=== PATIENT | male | born 1985 | race Caucasian/White ===

== ENCOUNTER 2017-09-22 22:14 | Emergency (ER) | payer MEDICAID ==
--- NOTE | 2017-09-22 22:31 | EDPHY ---
H & P Stated Complaint: KELLEY, URI s/sx x4days Time Seen by Provider: 09/22/17 22:21 HPI/ROS: Chief Complaint: Cough, headache, congestion HPI: 32-year-old male presenting with 3-4 days of cough, headache, sinus congestion. Patient states that his cough initially was dry, but has gotten progressively more productive over the last couple days. No fevers or chills. Some mild nausea. No chest pain shortness of breath. No abdominal pain. Did have a couple episodes of diarrhea yesterday. None today. 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 Does smoke cigarettes. Does not drink alcohol. Did use cocaine and MDMA earlier today. ROS: 10 point Review of Systems is negative except as noted in the HPI. PMH: None Social History: Positive smoking, no alcohol, occasionally uses meth, cocaine and MDMA Family History: non-contributory Physical Exam: Gen: Awake, Alert, No Distress HEENT: Nose: no rhinorrhea Eyes: PERRLA, EOMI Mouth: Moist mucosa Neck: Supple, no JVD Chest: nontender, no wheeze, moderate crackles at the left lung base Heart: S1, S2 normal, no murmur Abd: Soft, non-tender, no guarding Back: no CVA tenderness, no midline tenderness Ext: no edema, non-tender Skin: no rash Neuro: CN II-XII intact, Sensation grossly intact, Strength 5/5 in bilateral upper and lower extremities - Personal History Current Tetanus/Diphtheria Vaccine: No - Medical/Surgical History Hx Asthma: No Hx Chronic Respiratory Disease: No Hx Diabetes: No Hx Cardiac Disease: No Hx Renal Disease: No Hx Cirrhosis: No Hx Alcoholism: No Hx HIV/AIDS: No Hx Splenectomy or Spleen Trauma: No Other PMH: denies - Social History Smoking Status: Current every day smoker Constitutional: Initial Vital Signs Temperature (C) 36.7 C 09/22/17 22:15 Heart Rate 138 H 09/22/17 22:15 Respiratory Rate 18 09/22/17 22:15 Blood Pressure 142/105 H 09/22/17 22:15 O2 Sat (%) 95 09/22/17 22:15 O2 Delivery Mode Room Air Allergies/Adverse Reactions: No Known Allergies Allergy (Unverified 09/22/17 22:19) Home Medications: Medication Instructions Recorded NK [No Known Home Meds] 09/22/17 Medical Decision Making ED Course/Re-evaluation: Patient here with URI symptoms with some proximal left lung base. Is not wheezing. He is tachycardic but he did use cocaine earlier today. He is not toxic in appearance. Will obtain a chest x-ray to rule out infiltrate. He is afebrile. Chest x-ray is negative for infiltrate. Symptoms consistent with viral upper respiratory infection. Will treat symptomatically. Follow up with [facility] in 3-4 days if symptoms are not improving. Departure - Departure Disposition: Home, Routine, Self-Care Clinical Impression: URI (upper respiratory infection) Condition: Good Instructions: Upper Respiratory Infection (ED) Additional Instructions: Alternate acetaminophen (1000 mg) with ibuprofen (400 mg) every 4 hours as needed for fevers, chills, aches or pain. Follow up with [facility] in 3-4 days if symptoms are not improving. Referrals: [facility],. [Clinic] - As per Instructions
[2017-09-22 23:20] VITALS: BP 160/105; PULSE 121; RESP 20; TEMP 99; O2SAT 94
== END 2017-09-22 23:21 | disposition home or self-care (01) ==
DX: J06.9 Acute upper respiratory infection, unspecified (principal); F17.200 Nicotine dependence, unspecified, uncomplicated